=== PATIENT | male | born 1985 | race Caucasian/White ===

== ENCOUNTER 2021-12-10 23:40 | Emergency (ER) | payer BC ==
[~2021-12-10] VITALS: Ht 172.7 cm; Wt 77.1 kg
--- NOTE | 2021-12-10 23:48 | NUR ---
BIBRA FROM HOME FOR ETOH AND VOMITTING [id number] [id number] PER EMS. PATIENT ALERT AND ORIENTED X3. TANZANIAN SPEAKING ONLY, IN BED [address].
[2021-12-10] MEDS ORDERED: ONDANSETRON HCL/PF 4 MG/2 ML VIAL ONE (23:50)
[2021-12-11] MEDS ORDERED: ONDANSETRON HCL/PF 4 MG/2 ML VIAL IVP ONE
[2021-12-11] MEDS ORDERED: IV NS 0.9% 1,000 ML BAG IV ONE
--- NOTE | 2021-12-11 03:02 | NUR ---
FOLLOWED UP WITH [facility]IS FOR IMAGING RESULT.
--- NOTE | 2021-12-11 03:52 | NUR ---
FOLLOWED UP WITH [facility] AGAIN FOR IMAGING RESULT.
[2021-12-11] MEDS ORDERED: ONDANSETRON 4 MG TAB.RAPDIS ONE (04:56)
[2021-12-11] MEDS ORDERED: ONDANSETRON 4 MG TAB.RAPDIS SL ONE (05:00)
[2021-12-11 05:26] VITALS: BP 100/60
--- NOTE | 2021-12-11 05:26 | NUR ---
Patient discharged to home in stable condition. Written and verbal after care instructions given. Patient verbalizes understanding of instruction.
== END 2021-12-11 05:27 | disposition home or self-care (01) ==
LOC: ER 23:44
DX: F10.129 Alcohol abuse with intoxication, unspecified (principal); R11.2 Nausea with vomiting, unspecified
CPT/HCPCS: 71045; 96361; 96374; 99283; J2405; J7030; Q0162